=== PATIENT | female | born 1955 | race Caucasian/White ===

== ENCOUNTER 2018-01-27 14:01 | Observation (INO) | payer OTHER ==
[~2018-01-27] VITALS: Ht 170.2 cm; Wt 70.0 kg
[2018-01-27] VITALS (9 sets, daily range): BP systolic 113–174; BP diastolic 55–90; PULSE 66–90; RESP 16–19; TEMP 97.7–98.4; O2SAT 96–98
[~2018-01-27 14:01] MED LIST: CITA20TA4 PO; LOVA40TA PO; REME30TA PO
[2018-01-27] MEDS ORDERED: SODIUM CHLORIDE 0.9% FLUSH 10 ML FLUSH IVF PRN (14:45)
[2018-01-27] MEDS ORDERED: ASPIRIN 325 MG TAB PO ONE (14:45)
--- NOTE | 2018-01-27 14:53 | PD ---
HPI Chief Complaint: Chest Pain Time Seen by Provider: 14:37 Travel History International Travel<30 days: No Contact w/Intl Traveler<30days: No History of Present Illness HPI Patient presents to the emergency department complaint of chest pain. By the morning she states that she woke up with a chest ache. Also had some palpitations with a ache. Now the palpitations are common with a "punched" on the left side, tightness, nonradiating, no pain now but states she is having tightness, seconds in duration, intermittent, no alleviating or aggravating factors. She denies fever, chills, vomiting, cough, lower extremity edema. He does report nausea, headache, shortness of breath with exertion, and recent travel ([facility] [employer] ? 12/27-01/04). PFSH Past Medical History Arthritis: Yes Blood Disorders: No Cancer: No Cardiovascular Problems: No High Cholesterol: Yes Diabetes: No Diminished Hearing: No Endocrine: No Gastrointestinal Disorders: Yes (colitis) Genitourinary: No Immune Disorder: No Neurologic: No Psychiatric: No Reproductive: No Respiratory: No ?: Not : 2 Para: 2 Tubal Ligation: Yes Past Surgical History Hysterectomy: Yes Pacemaker: No Other Surgery: Yes (bunion sx) Social History Alcohol Use: Yes (occ) Tobacco Use: No Substance Use: No Allergies-Medications (Allergen,Severity, Reaction): Coded Allergies: ciprofloxacin (Unverified Allergy, Mild, BLISTERS, 03/26/17) Reported Meds & Prescriptions Reported Meds & Active Scripts Active Reported Trazodone (Trazodone HCl) 50 Mg Tab 50 Mg PO HS Yareli Allergy (Fexofenadine HCl) 180 Mg Tab 180 Mg PO DAILY Lovastatin 40 Mg Tab 40 Mg PO DAILY Citalopram (Citalopram Hydrobromide) 20 Mg Tab 20 Mg PO DAILY Review of Systems Except as stated in HPI: all other systems reviewed are Neg Physical Exam Narrative GENERAL: Acute distress. SKIN: Focused skin assessment warm/dry. HEAD: Atraumatic. Normocephalic. EYES: Pupils equal and round. No scleral icterus. No injection or drainage. ENT: No nasal bleeding or discharge. Mucous membranes pink and moist. NECK: Trachea midline. No JVD. CARDIOVASCULAR: Regular rate and rhythm. No murmur appreciated. RESPIRATORY: No accessory muscle use. Clear to auscultation. Breath sounds equal bilaterally. GASTROINTESTINAL: Abdomen soft, non-tender, nondistended. Hepatic and splenic margins not palpable. MUSCULOSKELETAL: No obvious deformities. No clubbing. No cyanosis. No edema. NEUROLOGICAL: Awake and alert. No obvious cranial nerve deficits. Motor grossly within normal limits. Normal speech. PSYCHIATRIC: Appropriate mood and affect; insight and judgment normal. Data Data Last Documented VS Vital Signs Date Time Temp Pulse Resp B/P (MAP) Pulse Ox O2 Delivery O2 Flow Rate FiO2 01/27/18 15:04 76 19 131/90 (104) 98 Room Air 01/27/18 14:20 98.4 Orders Orders Electrocardiogram (01/27/18 14:44) B-Type Natriuretic Peptide (01/27/18 14:44) Ckmb (Isoenzyme) Profile (01/27/18 14:44) Complete Blood Count With Diff (01/27/18 14:44) Comprehensive Metabolic Panel (01/27/18 14:44) D-Dimer (01/27/18 14:44) Magnesium (Mg) (01/27/18 14:44) Prothrombin Time / Inr (Pt) (01/27/18 14:44) Act Partial Throm Time (Ptt) (01/27/18 14:44) Troponin I (01/27/18 14:44) Chest, Single Ap (01/27/18 14:44) Ecg Monitoring (01/27/18 14:44) Iv Access Insert/Monitor (01/27/18 14:44) Oximetry (01/27/18 14:44) Aspirin (Aspirin) (01/27/18 14:45) Sodium Chloride 0.9% Flush (Ns Flush) (01/27/18 14:45) Thyroid Stimulating Hormone (01/27/18 14:48) Free T3 (01/27/18 14:48) Free Thyroxine (T4) (01/27/18 14:48) Admit Order (Ed Use Only) (01/27/18 16:14) Labs Laboratory Tests Test 01/27/18 15:00 Prothrombin Time 10.0 SEC Prothromb Time International Ratio 1.0 RATIO Activated Partial Thromboplast Time 24.7 SEC D-Dimer Quantitative (PE/DVT) LESS THAN 0.19 MG/L FEU Blood Urea Nitrogen 7 MG/DL Creatinine 0.77 MG/DL Random Glucose 85 MG/DL Total Protein 7.6 GM/DL Albumin 4.1 GM/DL Calcium Level 8.6 MG/DL Magnesium Level 2.2 MG/DL Alkaline Phosphatase 90 U/L Aspartate Amino Transf (AST/SGOT) 20 U/L Alanine Aminotransferase (ALT/SGPT) 20 U/L Total Bilirubin 0.4 MG/DL Sodium Level 142 MEQ/L Potassium Level 3.8 MEQ/L Chloride Level 109 MEQ/L Carbon Dioxide Level 22.9 MEQ/L Anion Gap 10 MEQ/L Estimat Glomerular Filtration Rate 76 ML/MIN Total Creatine Kinase 88 U/L Troponin I LESS THAN 0.02 NG/ML B-Type Natriuretic Peptide 3 PG/ML Free Thyroxine 0.90 NG/DL Free Triiodothyronine (T3) pg/dL 2.84 PG/ML Thyroid Stimulating Hormone 3rd Gen 1.710 uIU/ML MDM Medical Decision Making Medical Screen Exam Complete: Yes Emergency Medical Condition: Yes Interpretation(s) ECG: Sinus rhythm, rate 74, normal axis, T-wave inversion in V1 through V5 ( present on prior EKG) Labs: Chemistry, thyroid labs, cardiac enzymes within normal limits, CBC within normal limits Last Impressions Chest X-Ray 01/27/18 1444 Signed Impressions: CONCLUSION: No acute cardiopulmonary process. Differential Diagnosis Cardiac arrhythmia, thyroid disease, electrolyte abnormality, ACS, costochondritis Narrative Course Patient presents to the emergency department complaining of chest pain and palpitations. He was placed on a cardiac sonographer, IV access was obtained, and labs/chest x-ray/EKG ordered. Patient also given 325 mg p.o. aspirin. Diagnosis Primary Impression: Chest pain Qualified Codes: R07.9 - Chest pain, unspecified Additional Impression: Palpitations Admitting Information Admitting Physician Requests: Observation Condition: Stable Radha Ray MD Jan 27, 2018 14:53
[2018-01-27] MEDS ORDERED: LOVA40TA PO (15:33)
[2018-01-27] MEDS ORDERED: FEXO15TA PO (15:33)
[2018-01-27] MEDS ORDERED: TRAZ50TA12 PO (15:33)
[2018-01-27] MEDS ORDERED: CITA20TA4 PO (15:33)
--- NOTE | 2018-01-27 15:35 | RADRPT ---
EXAM DATE: 01/27/2018 3:23 PM EDT AGE/SEX: 62 years / Female INDICATIONS: Chest pain, dizzy, short of breath. CLINICAL DATA: This is the patient's initial encounter. Patient reports that signs and symptoms have been present for 3 days and indicates a pain score of 3/10. MEDICAL/SURGICAL HISTORY: None. None. COMPARISON: No prior exams available for comparison. FINDINGS: A single AP view of the chest demonstrates the lungs to be symmetrically aerated without evidence of mass, infiltrate or effusion. The cardiomediastinal contours are unremarkable. There is a mild area of focal sclerosis at the proximal left humerus likely related to a bone island although it is nonspe cific.. CONCLUSION: No acute cardiopulmonary process. Electronically signed by: Geovani Cummings MD 01/27/2018 3:34 PM EDT
[2018-01-27 15:47] LABS: ALBUMIN 4.1 GM/DL (3.4-5.0); BICARBONATE 22.9 MEQ/L (21.0-32.0); BLOOD UREA NITROGEN 7 MG/DL (7-18); CALCIUM 8.6 MG/DL (8.5-10.1); CHLORIDE 109 MEQ/L (98-107); CREATININE 0.77 MG/DL (0.50-1.00); GLOMERULAR FILTRATION RATE 76 ML/MIN (>89); GLUCOSE,RANDOM 85 MG/DL (74-106); MAGNESIUM 2.2 MG/DL (1.5-2.5); SODIUM (NA) 142 MEQ/L (136-145)
[2018-01-27 15:55] LABS: D-DIMER LESS THAN 0.19 MG/L FEU (0.00-0.50)
[2018-01-27 15:58] LABS: ALKALINE PHOSPHATASE 90 U/L (45-117); ALT (GPT) 20 U/L (10-53); AST (GOT) 20 U/L (15-37); TOTAL BILIRUBIN ADULT 0.4 MG/DL (0.2-1.0); TOTAL PROTEIN 7.6 GM/DL (6.4-8.2); TROPONIN I LESS THAN 0.02 NG/ML (0.02-0.05)
[2018-01-27 16:12] LABS: FREE T3 2.84 PG/ML (2.18-3.98); FREE T4 0.9 NG/DL (0.76-1.46)
[2018-01-27 16:41] LABS: AUTOMATED NEUTROPHIL # 4.8 TH/MM3 (1.8-7.7); BASOPHIL # 0.1 TH/MM3 (0-0.2); BASOPHIL % 1.2 % (0.0-2.0); EOSINOPHIL % 0.6 % (0.0-4.0); HEMATOCRIT 41.6 % (35.0-46.0); HEMOGLOBIN 14.4 GM/DL (11.6-15.3); LYMPH % 26.2 % (9.0-44.0); LYMPHOCYTE # 1.9 TH/MM3 (1.0-4.8); MEAN CORPUSCULAR HEMOGLOBIN 29.4 PG (27.0-34.0); MEAN CORPUSCULAR HGB CONC 34.6 % (32.0-36.0); MONO % 5.6 % (0.0-8.0); MONOCYTE # 0.4 TH/MM3 (0-0.9); NEUT % 66.4 % (16.0-70.0); PLATELET COUNT 240 TH/MM3 (150-450); RED CELL DISTRIBUTION WIDTH 12.2 % (11.6-17.2); WHITE BLOOD COUNT 7.2 TH/MM3 (4.0-11.0)
[2018-01-27] MEDS ORDERED: NITROGLYCERIN 0.4 MG SL 25 TABS/BTL SL PRN (17:00)
[2018-01-27] MEDS ORDERED: SODIUM CHLORIDE 0.9% FLUSH 10 ML FLUSH IV FLUSH PRN (17:00)
[2018-01-27] MEDS ORDERED: ACETAMINOPHEN 500 MG CPLT PO PRN (17:00)
[2018-01-27] MEDS ORDERED: CITA10TA4 PO (17:26)
[2018-01-27 19:25] LABS: TROPONIN I LESS THAN 0.02 NG/ML (0.02-0.05)
[2018-01-27] MEDS: SODIUM CHLORIDE 0.9% FLUSH 10 ML FLUSH IV FLUSH SCH (21:21)
[2018-01-27 22:08] LABS: TROPONIN I LESS THAN 0.02 NG/ML (0.02-0.05)
[2018-01-28 00:01] VITALS: PULSE 54
[2018-01-28 04:00] VITALS: PULSE 60
[2018-01-28 04:10] VITALS: BP 121/70; PULSE 63; RESP 16; TEMP 97.8; O2SAT 98
[2018-01-28 07:33] VITALS: BP 139/70; PULSE 68; RESP 16; TEMP 97.5; O2SAT 98
--- NOTE | 2018-01-28 08:03 | HHI.HP ---
HPI Primary Care Physician Bladimir Allison MD Chief Complaint Chest pain History of Present Illness 62 female with history of hyperlipidemia presents emergency room for further evaluation of nonexertional chest pain. Onset last 01/17/18. Location substernal. Characterized as "aching." Taking Excedrin with some relief. Yesterday discomfort changed characterized as tightness with intermittent "punch." Prior to punching sensation, experienced brief palpations. Duration punching sensation seconds. Tightness constant. No radiation. No associated symptoms of nausea, vomiting, dyspnea, or diaphoresis. No precipitating or relieving factors. Endorses similar pain in the past and told discomfort related to anxiety. Does not feel as though she is stressed currently. Traveling to [place] tomorrow, came to the ER for further evaluation before trip. Review of Systems General: No fatigue, weakness, fever, chills, or recent illness. Has been her general state of health. Recent travel returning from [facility] 01/04. Last day of travel experienced mild diarrhea, since resolved. HEENT: No BERNAL, no nasal congestion or drainage, no dysphasia CV: As stated above. No current chest pain or pressure. Palpitations as stated above, not accompanied with dizziness. RESP: No SOB, cough, wheeze, or recent URI. No history of asthma or COPD. GI: No nausea, vomiting, bowel changes, diarrhea, constipation, pain, distention , melena, or blood in the stool. No unintentional weight gain or weight loss : No dysuria, urgency, frequency, or history of kidney stones EXT: No lower leg edema, no paraesthesias MS: No discomfort, injury, or change in ROM NEURO: No change in memory, difficulty with balance, LOC, motor/sensory deficits PSYCH: No anxiety, depression, or suicidal ideation SKIN: No rashes, no concerning lesions Past Family Social History Allergies: Coded Allergies: ciprofloxacin (Unverified Allergy, Mild, BLISTERS, 03/26/17) Past Medical History Hyperlipidemia, colitis, depression Past Surgical History Tubal ligation, hysterectomy, left inguinal hernia repair, x2 knee arthroscopies Reported Medications Reported Meds & Active Scripts Active Reported Citalopram (Citalopram Hydrobromide) 10 Mg Tab 10 Mg PO HS Trazodone (Trazodone HCl) 50 Mg Tab 50 Mg PO HS Yareli Allergy (Fexofenadine HCl) 180 Mg Tab 180 Mg PO DAILY Lovastatin 40 Mg Tab 40 Mg PO DAILY Citalopram (Citalopram Hydrobromide) 20 Mg Tab 20 Mg PO DAILY Active Ordered Medications Current Medications Medications (Trade) Dose Ordered Sig/Stanley Route Start Time Stop Time Status Last Admin (NS Flush) 2 ml UNSCH PRN IV FLUSH 01/27/18 17:00 (NS Flush) 2 ml BID IV FLUSH 01/27/18 21:00 01/27/18 21:21 (Tylenol) 500 mg Q4H PRN PO 01/27/18 17:00 01/27/18 17:38 (Nitrostat Sl) 0.4 mg Q5M PRN SL 01/27/18 17:00 (Aspirin) 325 mg DAILY PO 01/28/18 09:00 Family History Father [place] in his mid 50s. Sister breast cancer. Mother ovarian cancer. Other sister has recurrent breast cancer. Social History Known hyperlipidemia. No known coronary artery disease, diabetes, or hypertension. Lifelong non-smoker. One glass of wine nightly. . Retired. 2 grown children. 5 grandchildren. Endorses active lifestyle. Attends gym 3x/week, walks treadmill 40 minutes and weight trains. Volunteers twice weekly. Past cardiac testing 01/16/14 lexiscan unremarkable. EF 55% Physical Exam Vital Signs Vital Signs Date Time Temp Pulse Resp B/P (MAP) Pulse Ox O2 Delivery O2 Flow Rate FiO2 01/28/18 07:33 97.5 68 16 139/70 (93) 98 01/28/18 04:10 97.8 63 16 121/70 (87) 98 01/28/18 04:00 60 01/27/18 23:22 97.7 67 16 121/55 (77) 97 01/27/18 21:36 96 01/27/18 20:08 72 01/27/18 19:45 97.8 77 16 135/68 (90) 96 01/27/18 18:00 97.7 66 16 133/63 (86) 97 01/27/18 17:14 98.1 73 18 113/57 (75) 97 01/27/18 17:10 98.1 73 18 113/57 (75) 97 Room Air 01/27/18 15:04 76 19 131/90 (104) 98 Room Air 01/27/18 15:04 76 19 131/90 (104) 98 Room Air 01/27/18 15:03 76 19 98 Room Air 01/27/18 14:20 98.4 90 16 174/70 (104) 98 Physical Exam GENERAL: Alert WN, WD, NAD, pleasant, female HEAD: NC, AT CV: RRR, without murmur, rub, gallop, no JVD, S1-S2 no S3-S4. Chest wall nontender with palpation. RESP: Clear lungs throughout bilateral, no crackles, wheeze, rhonchi, symmetrical chest rise, nonlabored, able to speak in full sentences ABD: Soft, NT, ND, no masses, positive bowel tones BACK: No scoliosis EXT: Pulses +2x4, no dependent edema MS: Normal tone x4 extremities, nontender, no obvious deformities, full range of motion NEURO: CN II through CN XII grossly intact, motor strength 5/5 PSYCH: A+O x3, pleasant affect, appropriate speech, mood, insight and judgment SKIN: Normal turgor, normal texture, no lesions, no rashes, even hair distribution Laboratory Laboratory Tests Test 01/27/18 15:00 01/27/18 16:30 01/27/18 18:00 01/27/18 21:20 Prothrombin Time 10.0 Prothromb Time International Ratio 1.0 Activated Partial Thromboplast Time 24.7 D-Dimer Quantitative (PE/DVT) LESS THAN 0.19 Blood Urea Nitrogen 7 Creatinine 0.77 Random Glucose 85 Total Protein 7.6 Albumin 4.1 Calcium Level 8.6 Magnesium Level 2.2 Alkaline Phosphatase 90 Aspartate Amino Transf (AST/SGOT) 20 Alanine Aminotransferase (ALT/SGPT) 20 Total Bilirubin 0.4 Sodium Level 142 Potassium Level 3.8 Chloride Level 109 Carbon Dioxide Level 22.9 Anion Gap 10 Estimat Glomerular Filtration Rate 76 Total Creatine Kinase 88 101 53 Troponin I LESS THAN 0.02 LESS THAN 0.02 LESS THAN 0.02 B-Type Natriuretic Peptide 3 Free Thyroxine 0.90 Free Triiodothyronine (T3) pg/dL 2.84 Thyroid Stimulating Hormone 3rd Gen 1.710 White Blood Count 7.2 Red Blood Count 4.90 Hemoglobin 14.4 Hematocrit 41.6 Mean Corpuscular Volume 85.0 Mean Corpuscular Hemoglobin 29.4 Mean Corpuscular Hemoglobin Concent 34.6 Red Cell Distribution Width 12.2 Platelet Count 240 Mean Platelet Volume 8.0 Neutrophils (%) (Auto) 66.4 Lymphocytes (%) (Auto) 26.2 Monocytes (%) (Auto) 5.6 Eosinophils (%) (Auto) 0.6 Basophils (%) (Auto) 1.2 Neutrophils # (Auto) 4.8 Lymphocytes # (Auto) 1.9 Monocytes # (Auto) 0.4 Eosinophils # (Auto) 0.0 Basophils # (Auto) 0.1 CBC Comment DIFF FINAL Differential Comment Creatine Kinase MB 1.5 Result Diagram: 01/27/18 1630 01/27/18 1500 Imaging Last 48 hours Impressions Chest X-Ray 01/27/18 1444 Signed Impressions: CONCLUSION: No acute cardiopulmonary process. Course EKG Normal sinus rhythm, extensive ST-T segment changes-compared to previous EKG unchanged. Caprini VTE Risk Assessment Caprini VTE Risk Assessment: Mod/High Risk (score >= 2) Caprini Risk Assessment Model Point Value = 1 Point Value = 2 Point Value = 3 Point Value = 5 Age 41-60 Minor surgery BMI > 25 kg/m2 Swollen legs Varicose veins or History of unexplained or recurrent spontaneous Oral contraceptives or hormone replacement Sepsis (< 1 month) Serious lung disease, including pneumonia (< 1 month) Abnormal pulmonary function Acute myocardial infarction Congestive heart failure (< 1 month) History of inflammatory bowel disease Medical patient at bed rest Age 61-74 Arthroscopic surgery Major open surgery (> 45 min) Laparoscopic surgery (> 45 min) Malignancy Confined to bed (> 72 hours) Immobilizing plaster cast Central venous access Age >= 75 History of VTE Family history of VTE Factor V Leiden Prothrombin [id number] Lupus anticoagulant Anticardiolipin antibodies Elevated serum homocysteine Heparin-induced thrombocytopenia Other congenital or acquired thrombophilia Stroke (< 1 month) Elective arthroplasty Hip, pelvis, or leg fracture Acute spinal cord injury (< 1 month) Prophylaxis Regimen Total Risk Factor Score Risk Level Prophylaxis Regimen 0-1 Low Early ambulation 2 Moderate Order ONE of the following: *Sequential Compression Device (SCD) *Heparin 5000 units SQ BID 3-4 Higher Order ONE of the following medications: *Heparin 5000 units SQ TID *Enoxaparin/Lovenox 40 mg SQ daily (WT < 150 kg, CrCl > 30 mL/min) *Enoxaparin/Lovenox 30 mg SQ daily (WT < 150 kg, CrCl > 10-29 mL/min) *Enoxaparin/Lovenox 30 mg SQ BID (WT < 150 kg, CrCl > 30 mL/min) AND/OR *Sequential Compression Device (SCD) 5 or more Highest Order ONE of the following medications: *Heparin 5000 units SQ TID (Preferred with Epidurals) *Enoxaparin/Lovenox 40 mg SQ daily (WT < 150 kg, CrCl > 30 mL/min) *Enoxaparin/Lovenox 30 mg SQ daily (WT < 150 kg, CrCl > 10-29 mL/min) *Enoxaparin/Lovenox 30 mg SQ BID (WT < 150 kg, CrCl > 30 mL/min) AND *Sequential Compression Device (SCD) Assessment and Plan Assessment and Plan #1 Atypical chest pain-admitted chest pain center. ACS ruled out with 3 sets of EKGs, cardiac enzymes, and monitored on telemetry overnight. Seen and evaluated by Dr. Loretta Bagley. Recommended nuclear treadmill, however due to software issues will proceed with chemical cardiac testing. Patient agreeable to plan of care. If testing unremarkable, plans will be to discharge home with follow-up with Dr. Allison. #2 History of depression-continue citalopram #3 History of hyperlipidemia-continue lovastatin Patricia Wallace Jan 28, 2018 08:03
[2018-01-28] MEDS ORDERED: PRAVASTATIN SOD 40 MG TAB PO SCH (09:00)
[2018-01-28] MEDS ORDERED: CITALOPRAM HYDROBROMIDE 20 MG TAB PO SCH (09:00)
[2018-01-28] MEDS ORDERED: LORATADINE 10 MG TAB PO SCH (09:00)
[2018-01-28] MEDS ORDERED: ASPIRIN 325 MG TAB PO SCH (09:00)
--- NOTE | 2018-01-28 09:12 | EKG ---
Date Performed: 01/27/2018 Time Performed: 22:07:00 PTAGE: 62 years EKG: Sinus rhythm ST DEVIATION AND MODERATE T-WAVE ABNORMALITY, CONSIDER ANTEROLATERAL ISCHEMIA ST DEVIATION AND MODER ATE T-WAVE ABNORMALITY, CONSIDER INFERIOR ISCHEMIA ABNORMAL ECG Artifact, Since PREVIOUS TRACING , no significant change noted PREVIOUS TRACIN01/27/2018 18.43 DOCTOR: Loretta Bagley Interpretating Date/Time 01/28/2018 09:11:18
--- NOTE | 2018-01-28 09:13 | EKG ---
Date Performed: 01/27/2018 Time Performed: 18:43:03 PTAGE: 62 years EKG: Sinus rhythm ST DEVIATION AND MODERATE T-WAVE ABNORMALITY, CONSIDER ANTEROLATERAL ISCHEMIA ABNORMAL ECG Since PREVIOUS TRACING , no significant change noted PREVIOUS TRACIN01/27/2018 15.23 DOCTOR: Loretta Bagley Interpretating Date/Time 01/28/2018 09:12:24
--- NOTE | 2018-01-28 09:15 | EKG ---
Date Performed: 01/27/2018 Time Performed: 15:23:52 PTAGE: 62 years EKG: Sinus rhythm ST DEVIATION AND MODERATE T-WAVE ABNORMALITY, CONSIDER ANTERIOR ISCHEMIA ABNORMAL ECG Since PREVIOUS TRACING , no significant change noted PREVIOUS TRACIN06/14/2015 09.50 DOCTOR: Loretta Bagley Interpretating Date/Time 01/28/2018 09:13:42
[2018-01-28 09:44] VITALS: PULSE 61
[2018-01-28] MEDS: SODIUM CHLORIDE 0.9% FLUSH 10 ML FLUSH IV FLUSH SCH (09:50)
[2018-01-28] MEDS ORDERED: REGADENOSON INJ 0.4 MG/5 ML SYR ONE (10:46)
[2018-01-28 12:00] VITALS: BP 126/56; PULSE 74; RESP 16; TEMP 97.8; O2SAT 97
--- NOTE | 2018-01-28 12:23 | RADRPT ---
EXAM DATE: 01/28/2018 12:04 PM EDT AGE/SEX: 62 years / Female INDICATIONS:Angina. . Chest pain left sided for one day. CLINICAL DATA: This is the patient's initial encounter. Patient reports that signs and symptoms have been present for 1 day and indicates a pain score of 5/10. MEDICAL/SURGICAL HISTORY: None. Hysterectomy. Tubal ligation. COMPARISON: No prior exams available for comparison. DOSE: 8.5 mCi Tc 99m Myoview at rest 25.4 mCi [id number] at stress 0.4 mg Lexiscan STRESS SYMPTOMS: Dyspnea. EJECTION FRACTION: 61 % TECHNIQUE: The patient underwent pharmacologic stress with infusion of prescribed dose. Continuous ECG tracing was monitored during stress. Gated SPECT imaging was performed after stress and conventi onal SPECT imaging was performed at rest. The examination was performed on a SPECT/CT scanner, both attenuation and non-corrected datasets were reviewed. FINDINGS: Distribution: The maximum perfused segment at stress is in the anterior wall. Perfusion Study: The pattern of perfusion at stress is within normal limits. Gated Study: There are intact wall motion and wall thickening without hypokinetic or dyskinetic segm ents. The ejection fraction is calculated at 61%. RISK CATEGORY: Low (<1% Annual Motality Rate) CONCLUSION: 1. Unremarkable myocardial perfusion study. Electronically signed by: Mikhail Schafer MD 01/28/2018 12:22 PM EDT
--- NOTE | 2018-01-28 12:27 | HHI.DCPOC ---
Discharge Care Plan Diagnosis: (1) Atypical chest pain Goals to Promote Your Health * To prevent worsening of your condition and complications * To maintain your health at the optimal level Directions to Meet Your Goals Take your medications as prescribed Follow your dietary instruction Follow activity as directed Keep your appointments as scheduled Take your immunizations and boosters as scheduled If your symptoms worsen call your PCP, if no PCP go to Urgent Care Center or Emergency Room Smoking is Dangerous to Your Health. Avoid second hand smoke Call the 24-hour hour crisis hotline for domestic abuse at Patircia Wallace Jan 28, 2018 12:27
--- NOTE | 2018-01-28 15:28 | TR ---
Date Performed: 01/28/2018 Time Performed: 10:45:33 DOCTOR: Loretta Bagley DRUG LIST: CLINICAL HISTORY: REASON FOR TEST: REASON FOR ENDING: OBSERVATION: CONCLUSION: Lexiscan stress test was performed under standard four minute protocol. Radionuclid e was injected one minute prior to ending the test. No electrocardiographic abormalities were present to suggest ischemia. Nuclear imaging and interpretation are pending. COMMENTS: no ischemia
== END 2018-01-28 13:09 | disposition home or self-care (01) ==
LOC: NEPE 14:01 → NEDA 16:15 → NEPFCDU 17:18
PROVIDERS: ADMIT Internal Medicine Cardiovascular Disease; ATTEND Internal Medicine Cardiovascular Disease
DX: R07.89 Other chest pain (principal); E78.5 Hyperlipidemia, unspecified; F32.9 Major depressive disorder, single episode, unspecified; R00.2 Palpitations; M19.90 Unspecified osteoarthritis, unspecified site; E78.00 Pure hypercholesterolemia, unspecified; K52.9 Noninfective gastroenteritis and colitis, unspecified; Z90.710 Acquired absence of both cervix and uterus; Z79.899 Other long term (current) drug therapy; R94.31 Abnormal electrocardiogram [ECG] [EKG]; R06.02 Shortness of breath; R11.0 Nausea; R51 Headache
CPT/HCPCS: 71045; 78452; 80053; 82550; 82552; 83735; 83880; 84439; 84443; 84481; 84484; 85025; 85379; 85610; 85730; 93005; 93017; 99285; A9502; G0378; J2785